=== PATIENT | female | born 1985 | race Caucasian/White ===

== ENCOUNTER 2024-03-29 15:11 | Observation (INO) | payer BC, SELFPAY ==
[2024-03-29] VITALS (48 sets, daily range): BP systolic 100–171; BP diastolic 60–94; PULSE 74–113; RESP 14–33; TEMP 37.4–37.8; O2SAT 87–100
--- NOTE | 2024-03-29 15:15 | DI.US_ITS ---
Exam(s) US OB 1ST TRIMESTER EXAM: US OB 1ST TRIMESTER CLINICAL HISTORY: 6w gest, miso on 03/18, now pelvic pain fever. TECHNIQUE: First trimester obstetrical ultrasound was performed. COMPARISON: No exams were available for comparison FINDINGS: There is a small amount of echogenic material in the endometrial canal at the level of the uterine fu ndus. There is minimal amount of fluid in the medial canal at the lower uterine segment. There are dilated veins on both sides of the uterus as well as in the region of the cervix. No abnormal adnexal masses. Both ovaries appear unremarkable. There is a small amount of fluid in t he cul-de-sac. No obvious extra ovarian adnexal masses. IMPRESSION:: Given the history here findings most probably consistent with some retained products of conception in the endometrial canal at the level the uterine fundus No abnormal ovarian findings Is a small amount of free fluid in the cul-de-sac. Discussed by phone with ER physician 03/29/2024 4:45 p.m. DATA REPOSITORY:
[2024-03-29 15:52] LABS: Bilirubin Negative (Negative); Blood Small (Negative); Clarity Clear (Clear); Glucose Negative (Negative); Ketones Negative (Negative); Leukocyte Esterase Negative (Negative); Nitrite Negative (Negative); Urobilinogen 0.2 mg/dL (Up to 0.2); pH 5.5 (5-8)
[2024-03-29 16:06] LABS: Bacteria Negative HPF (Negative); C & S Indicated? No; Crystals Negative HPF (Negative); Epithelial Cells Rare HPF (Negative); Mucus Negative (Negative); WBC Negative HPF (0-5)
[2024-03-29 16:19] LABS: Abs Immature Grans 0.07 10^3/uL (0.0-0.06); Absolute Basophil Count 0.04 10^3/uL (0.0-0.2); Absolute Eosinophil Count 0.06 10^3/uL (0.0-0.7); Absolute Lymphocyte Count 0.61 10^3/uL (1.2-3.4); Absolute Monocyte Count 0.81 10^3/uL (0.1-0.8); Absolute Neutrophil Count 13.34 10^3/uL (1.2-6.7); Basophils % 0.3 %; Eosinophils % 0.4 %; HCT 40.3 % (36.0-46.0); HGB 13.3 g/dL (11.2-15.7); Immature Grans % 0.5 %; Lymphocytes % 4.1 %; MCH 30.9 pg (27.0-33.0); MCV 94 fL (80-95); Monocytes % 5.4 %; Neutrophils % 89.3 %; Platelet Count 255 10^3/uL (130-400); RBC 4.31 10^6/uL (3.93-5.22); RDW 12.7 % (11.7-14.6); RDW-SD 43.7 fL; WBC 14.94 10^3/uL (4.4-10.8)
[2024-03-29 16:43] LABS: ALT 19 U/L (14-59); AST 14 U/L (15-37); Albumin 4.2 g/dL (3.4-5.0); Alkaline Phosphatase 52 U/L (46-116); Anion Gap 11.6 mmol/L (3-11); BUN 16 mg/dL (7-18); Bilirubin, Total 0.33 mg/dL (0.2-1.0); CO2 24.4 mmol/L (21.0-32.0); CREATININE 0.8 mg/dL (0.55-1.02); Calcium 9.4 mg/dL (8.5-10.1); Chloride 104 mmol/L (98-107); Estimated GFR 96.06 (mL/min/1.73m2); Glucose 97 mg/dL (74-106); HCG Quant, Pregnancy 159 mIU/mL (1-3); Potassium 3.6 mmol/L (3.5-5.1); Sodium 140 mmol/L (136-145)
[2024-03-29 17:13] LABS: PTT Activated 27.2 sec (20.6-30.2); Prothrombin Time 10.2 sec (9.1-11.1)
--- NOTE | 2024-03-29 17:28 | ED.GENADUL_ITS ---
Discharge Plan Disposition Patient Disposition: Admit to [facility] Condition: Serious Discharge Details Clinical Impression: Endometritis Primary Care Provider: None,None ED Provider: Monica Caldwell Home Meds and New Rx's Prescriptions: New doxycycline hyclate 100 mg capsule 100 mg PO BID Qty: 26 0RF Continued levothyroxine [Synthroid] 125 mcg tablet 125 mcg PO DAILY sertraline 50 mg tablet 50 mg PO DAILY metoprolol succinate 50 mg tablet extended release 24 hr 50 mg PO DAILY Discharge Instructions Additional Instructions: Take methergine 0.2mg every 4 hours for six total doses. You were given one the ED; the other 5 days are being sent home with you. Take them every 4 hours until they are gone. Take doxycycline every 12 hours for the next 14 days. Followup with OB- they will call you to schedule an appointment for Thursday. If you do not hear from them please call the office. Return to the emergency department for new or worsening symptoms including fever that does not respond to medication, if you feel worse, are vomiting, feel like you are going to pass out, or if you have any other concerns. Referrals: [facility] [Provider Group] HPI General Mode of arrival: ambulatory . Date/Time Provider Initiated Documentation: 03/29/24 15:13 . Limitations to Documentation: no limitations . Information obtained by: patient . HPI Narrative: 38yo , recent incomplete miscarriage at 6 weeks gestation treated with misoprostol on 03/18 at presenting for fever and pelvic pain. Bleeding is still present but has slowed down significantly. For the past several days has felt generally unwell, febrile to 102F at home (improved with tylenol and ibuprofen), and has increasing pelvic pain and cramping. No foul smelling discharge. Currently has diffuse myalgias and mild diffuse headache. Otherwise in her usual state of health with no chills, rash, nausea, vomiting, dysuria, hematuria, or other concerns. Related Data Home Medications ?Medication ?Instructions ?Recorded ?Confirmed doxycycline hyclate 100 mg capsule 100 mg PO BID #26 caps 03/29/24 levothyroxine 125 mcg tablet 125 mcg PO DAILY 03/29/24 03/29/24 (Synthroid) metoprolol succinate 50 mg 50 mg PO DAILY 03/29/24 03/29/24 tablet,extended release 24 hr sertraline 50 mg tablet 50 mg PO DAILY 03/29/24 03/29/24 Previous Rx's ?Medication ?Instructions ?Recorded doxycycline hyclate 100 mg capsule 100 mg PO BID #26 caps 03/29/24 Allergies Allergy/AdvReac Type Severity Reaction Status Date / Time amoxicillin (From Augmentin) Allergy Intermediate Skin Rash Verified 03/29/24 15:21 clavulanic acid (From Allergy Intermediate Skin Rash Verified 03/29/24 15:21 Augmentin) General Stated Complaint: [employer]: 3 Review of Systems Narrative: see HPI Exam Narrative Exam Narrative: General: Alert, in no acute distress. Head: Normocephalic, atraumatic Neck: Trachea midline, ?Neck supple. ENT: ?MMM.? No oropharygeal lesions or exudate. Cardiac: ?Tachycardiac, regular, no murmurs appreciated Resp: No respiratory distress. CTAB. Abd: ?Soft, non-distended, nontender : ?No suprapubic tenderness. Pelvic: Normal external genitalia with no lesions.? No active bleeding. No CMT. Uterus significantly TTP, adenxa nontender with no masses palpated. Extremities: ?No deformities.? No peripheral edema. Neurologic: GCS 15. ? Moves all extremities freely against gravity Course Vital Signs Vital signs: Vital Signs Temperature 37.7 C H 03/29/24 15:16 Pulse 105 H 03/29/24 15:16 Respiratory Rate 18 03/29/24 15:16 Blood Pressure 171/83 H 03/29/24 15:16 Pulse Oximetry 100 03/29/24 15:16 Temperature 37.7 C H 03/29/24 15:16 Temperature Source Oral 03/29/24 15:16 Pulse 105 H 03/29/24 15:16 Respiratory Rate 18 03/29/24 15:16 Blood Pressure 171/83 H 03/29/24 15:16 Blood Pressure Position Supine 03/29/24 15:16 Pulse Oximetry 100 03/29/24 15:16 Oxygen Delivery Method Room Air 03/29/24 15:16 Oxygen Flow Rate 0 03/29/24 15:16 Pain Level 4 03/29/24 15:43 Lab/Test Results Lab/Test Results: 03/29/24 17:10 Vaginal Vaginitis Screen - Pending 03/29/24 16:50 Blood Blood Culture - Pending 03/29/24 16:10 Blood Blood Culture - Pending Laboratory Tests Range/Units 03/29/24 03/29/24 03/29/24 15:30 16:10 16:50 WBC (4.4-10.8) 10^3/uL 14.94 H RBC (3.93-5.22) 10^6/uL 4.31 Hgb (11.2-15.7) g/dL 13.3 Hct (36.0-46.0) % 40.3 MCV (80-95) fL 94 MCH (27.0-33.0) pg 30.9 MCHC (32.0-36.0) % 33.0 RDW (11.7-14.6) % 12.7 Plt Count (130-400) 10^3/uL 255 MPV (8.0-11.0) fL 9.0 Immature Gran % % 0.5 Neutrophils % % 89.3 Lymphocytes % % 4.1 Monocytes % % 5.4 Eosinophils % % 0.4 Basophils % % 0.3 Nucleated RBC % (0.0-0.3) % 0.0 Absolute Neutrophils (1.2-6.7) 10^3/uL 13.34 H Absolute Lymphocytes (1.2-3.4) 10^3/uL 0.61 L Absolute Monocytes (0.1-0.8) 10^3/uL 0.81 H Absolute Eosinophils (0.0-0.7) 10^3/uL 0.06 Absolute Basophils (0.0-0.2) 10^3/uL 0.04 PT (9.1-11.1) sec 10.2 INR (0.9-1.1) 1.0 APTT (20.6-30.2) sec 27.2 Sodium (136-145) mmol/L 140 Potassium (3.5-5.1) mmol/L 3.6 Chloride (98-107) mmol/L 104 Carbon Dioxide (21.0-32.0) mmol/L 24.4 Anion Gap (3-11) mmol/L 11.6 H BUN (7-18) mg/dL 16 Creatinine (0.55-1.02) mg/dL 0.8 Est GFR (CKD-EPI 2020) (mL/min/1.73m2) 96.06 Glucose (74-106) mg/dL 97 Calcium (8.5-10.1) mg/dL 9.4 Total Bilirubin (0.2-1.0) mg/dL 0.33 AST (15-37) U/L 14 L ALT (14-59) U/L 19 Alkaline Phosphatase (46-116) U/L 52 Total Protein (6.4-8.2) g/dL 8.0 Albumin (3.4-5.0) g/dL 4.2 Beta HCG, Quant (1-3) mIU/mL 159 H Urine Color (Yellow) Yellow Urine Clarity (Clear) Clear Urine pH (5-8) 5.5 Ur Specific [place] (1.005-1.025) 1.010 Urine Protein (Neg-Trace) mg/dL Negative Urine Ketones (Negative) mg/dL Negative Urine Blood (Negative) Small H Urine Nitrite (Negative) Negative Urine Bilirubin (Negative) Negative Urine Urobilinogen (Up to 0.2) mg/dL 0.2 Ur Leukocyte Esterase (Negative) Negative Urine RBC (0-2) HPF 3-5 H Urine WBC (0-5) HPF Negative Ur Epithelial Cells (Negative) HPF Rare Urine Crystals (Negative) HPF Negative Urine Bacteria (Negative) HPF Negative Urine Mucus (Negative) Negative Ur Culture Indicated? No Urine Glucose (Negative) mg/dL Negative ABO/Rh A Positive Antibody Screen NEGATIVE Medical Decision Making 38yo , recent incomplete miscarriage at 6 weeks gestation treated with misoprostol on 03/18 at presenting for fever and pelvic pain. Hypertensive and tachycardiac on arrival, afebrile. Non-toxic on exam, minimal vaginal bleeding, does have marked uterine tenderness on pelvic exam with no CMT. Concerning for retained products of conception/infection/endometritis. Will give tylenol and toradol for pain. Labs reviewed as below, CBC with leukocytosis to 14.9 and no anemia, CMP with no actionable abnormalities, lactate normal, serum bHCG 159, UA not infected. US independently reviewed, agree with radiology read below with possible retained products. On reassessment remains non-toxic, vital signs improved with HR in 70's and BP 130's/60's. With elevated WBC and initial tachycardia does meet SIRS criteria however is extremely well appearing with normalized vital signs would not treat as septic with aggressive fluid resus or broad spectrum antibiotics. Blood cultures were sent and are pending. Discussed with OB Dr. Monroy who came and evaluated patient. Plan for dose of IV ceftriaxone and discharge home on PO doxycyline and methergine with close outpatient followup. On reassessment patient reports feeling worse, worsening general body aches, worsening headache. HR return to 90's-100's. Does appear less well than on arrival. Given this, I ordered an IVB and discussed with Dr. Cardenas again who agrees to accepted patient for observation and inpatient antibiotic treatment. Awaiting admission orders and transfer to the floor. Imaging Data Radiologic Study: Imaging: X-Ray Radiologist's impression: IMPRESSION:: Given the history here findings most probably consistent with some retained products of conception in the endometrial canal at the level the uterine fundus Lab Data Lab results reviewed: Yes I reviewed the patient's lab results. Labs: 03/29/24 17:10 Vaginal Vaginitis Screen - Final 03/29/24 16:50 Blood Blood Culture - Pending 03/29/24 16:10 Blood Blood Culture - Pending Laboratory Tests Range/Units 03/29/24 03/29/24 03/29/24 15:30 16:10 16:50 WBC (4.4-10.8) 10^3/uL 14.94 H RBC (3.93-5.22) 10^6/uL 4.31 Hgb (11.2-15.7) g/dL 13.3 Hct (36.0-46.0) % 40.3 MCV (80-95) fL 94 MCH (27.0-33.0) pg 30.9 MCHC (32.0-36.0) % 33.0 RDW (11.7-14.6) % 12.7 Plt Count (130-400) 10^3/uL 255 MPV (8.0-11.0) fL 9.0 Immature Gran % % 0.5 Neutrophils % % 89.3 Lymphocytes % % 4.1 Monocytes % % 5.4 Eosinophils % % 0.4 Basophils % % 0.3 Nucleated RBC % (0.0-0.3) % 0.0 Absolute Neutrophils (1.2-6.7) 10^3/uL 13.34 H Absolute Lymphocytes (1.2-3.4) 10^3/uL 0.61 L Absolute Monocytes (0.1-0.8) 10^3/uL 0.81 H Absolute Eosinophils (0.0-0.7) 10^3/uL 0.06 Absolute Basophils (0.0-0.2) 10^3/uL 0.04 PT (9.1-11.1) sec 10.2 INR (0.9-1.1) 1.0 APTT (20.6-30.2) sec 27.2 VBG Lactate (<or=2.0) mmol/L Sodium (136-145) mmol/L 140 Potassium (3.5-5.1) mmol/L 3.6 Chloride (98-107) mmol/L 104 Carbon Dioxide (21.0-32.0) mmol/L 24.4 Anion Gap (3-11) mmol/L 11.6 H BUN (7-18) mg/dL 16 Creatinine (0.55-1.02) mg/dL 0.8 Est GFR (CKD-EPI 2020) (mL/min/1.73m2) 96.06 Glucose (74-106) mg/dL 97 Calcium (8.5-10.1) mg/dL 9.4 Total Bilirubin (0.2-1.0) mg/dL 0.33 AST (15-37) U/L 14 L ALT (14-59) U/L 19 Alkaline Phosphatase (46-116) U/L 52 Total Protein (6.4-8.2) g/dL 8.0 Albumin (3.4-5.0) g/dL 4.2 Beta HCG, Quant (1-3) mIU/mL 159 H Urine Color (Yellow) Yellow Urine Clarity (Clear) Clear Urine pH (5-8) 5.5 Ur Specific [place] (1.005-1.025) 1.010 Urine Protein (Neg-Trace) mg/dL Negative Urine Ketones (Negative) mg/dL Negative Urine Blood (Negative) Small H Urine Nitrite (Negative) Negative Urine Bilirubin (Negative) Negative Urine Urobilinogen (Up to 0.2) mg/dL 0.2 Ur Leukocyte Esterase (Negative) Negative Urine RBC (0-2) HPF 3-5 H Urine WBC (0-5) HPF Negative Ur Epithelial Cells (Negative) HPF Rare Urine Crystals (Negative) HPF Negative Urine Bacteria (Negative) HPF Negative Urine Mucus (Negative) Negative Ur Culture Indicated? No Urine Glucose (Negative) mg/dL Negative ABO/Rh A Positive Antibody Screen NEGATIVE Range/Units 03/29/24 20:45 WBC (4.4-10.8) 10^3/uL RBC (3.93-5.22) 10^6/uL Hgb (11.2-15.7) g/dL Hct (36.0-46.0) % MCV (80-95) fL MCH (27.0-33.0) pg MCHC (32.0-36.0) % RDW (11.7-14.6) % Plt Count (130-400) 10^3/uL MPV (8.0-11.0) fL Immature Gran % % Neutrophils % % Lymphocytes % % Monocytes % % Eosinophils % % Basophils % % Nucleated RBC % (0.0-0.3) % Absolute Neutrophils (1.2-6.7) 10^3/uL Absolute Lymphocytes (1.2-3.4) 10^3/uL Absolute Monocytes (0.1-0.8) 10^3/uL Absolute Eosinophils (0.0-0.7) 10^3/uL Absolute Basophils (0.0-0.2) 10^3/uL PT (9.1-11.1) sec INR (0.9-1.1) APTT (20.6-30.2) sec VBG Lactate (<or=2.0) mmol/L 1.2 Sodium (136-145) mmol/L Potassium (3.5-5.1) mmol/L Chloride (98-107) mmol/L Carbon Dioxide (21.0-32.0) mmol/L Anion Gap (3-11) mmol/L BUN (7-18) mg/dL Creatinine (0.55-1.02) mg/dL Est GFR (CKD-EPI 2020) (mL/min/1.73m2) Glucose (74-106) mg/dL Calcium (8.5-10.1) mg/dL Total Bilirubin (0.2-1.0) mg/dL AST (15-37) U/L ALT (14-59) U/L Alkaline Phosphatase (46-116) U/L Total Protein (6.4-8.2) g/dL Albumin (3.4-5.0) g/dL Beta HCG, Quant (1-3) mIU/mL Urine Color (Yellow) Urine Clarity (Clear) Urine pH (5-8) Ur Specific [place] (1.005-1.025) Urine Protein (Neg-Trace) mg/dL Urine Ketones (Negative) mg/dL Urine Blood (Negative) Urine Nitrite (Negative) Urine Bilirubin (Negative) Urine Urobilinogen (Up to 0.2) mg/dL Ur Leukocyte Esterase (Negative) Urine RBC (0-2) HPF Urine WBC (0-5) HPF Ur Epithelial Cells (Negative) HPF Urine Crystals (Negative) HPF Urine Bacteria (Negative) HPF Urine Mucus (Negative) Ur Culture Indicated? Urine Glucose (Negative) mg/dL ABO/Rh Antibody Screen Quality:SDOH Health Related Social Needs: No Data to Display PFSH All Active Problems (Updated 03/29/24 @ 19:32 by Monica Caldwell MD) Endometritis (Acute) Endometritis (Acute) PVC (premature ventricular contraction) (Acute) Anxiety (Chronic) Hypothyroid (Chronic) Social History Smoking/Tobacco Use Status: Never Smoking risk assessment performed?: Yes Alcohol Intake: never Substance use type: does not use Housing: house Do you feel safe at home: Yes Do you feel safe in your relationship?: Yes History History 3 Para 3 Hx # Term Pregnancies 3 Multiple births Hx # Pregnancies Ectopic pregnancies AB induced Hx Number of Living Children 3 AB spontaneous 2
[2024-03-29] MEDS: Ketorolac 15 MG/ML VIAL IVP (17:46)
[2024-03-29] MEDS: Acetaminophen 500 MG TAB 1000 MG PO ×2 (17:50→22:21)
--- NOTE | 2024-03-29 18:32 | OBCE_ITS ---
Date of service: 03/29/24 Time of Service: 18:32 Assessment and Plan Assessment and plan (1) Endometritis: Status: Acute Assessment and plan: Suspect endometritis with possible small amount of retained POC. However, given her stable presentation and relatively benign appearing endometrium I think it is reasonable to treat the endometritis with Ceftriaxone and doxy and give a course of methergine to assist with expulsion of anything remaining in the uterus. I will give her a f/u call am and she will be contacted to schedule a f/u visit with me on Thursday. 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 She will be sent home with her first doses of doxy. History of Present Illness History of Present Illness Chief Complaint: post-miscarriage fever Narrative: Pt had a MAB, about 5-6wks, treated with misoprostol at [facility] on Mar 18. She had about 4 days of heavier bleeding, similar to her prior miscarriage. Then the bleeding subsided and was minimal. About 3 days ago she began to develop pelvic pain and then a fever up to 102. She is still only having minimal bleeding, needing 1 pad/day. She came to the ED for evaluation. Afebrile here. Review of Systems Genitourinary Genitourinary: Reports system reviewed and no additional complaints, except as documented PFSH All Active Problems (Updated 03/29/24 @ 18:46 by Tasneem Monroy MD) Endometritis (Acute) PVC (premature ventricular contraction) (Acute) Anxiety (Chronic) Hypothyroid (Chronic) Social History Smoking/Tobacco Use Status: Never Smoking risk assessment performed?: Yes Alcohol Intake: never Substance use type: does not use Housing: house Do you feel safe at home: Yes Do you feel safe in your relationship?: Yes History History 2 3 Para 3 Hx # Term Pregnancies 3 Multiple births Hx # Pregnancies Ectopic pregnancies AB induced Hx Number of Living Children 3 AB spontaneous 2 Exam Const General: cooperative, healthy appearing and no acute distress HENMT Head: normocephalic and atraumatic Ears: hearing grossly normal bilaterally Resp Effort & Inspection: normal respiratory effort and able to speak in complete sentences GI Other: Tender to palpation in the suprapubic region. Pelvic exam not repeated as already done by ED Doc - minimal blood noted. Neuro General: patient alert and patient awake Psych Appearance: grossly normal Mental Status: mental status grossly normal Speech and Movement: speech and movement normal Affect: normal affect Attitude: cooperative Thought Process: normal Thought Content: normal Results Last Vital Signs Temp 100.0 F H 03/29/24 17:44 Pulse 101 H 03/29/24 18:15 Resp 22 03/29/24 18:20 BP 122/63 03/29/24 18:15 Pulse Ox 98 03/29/24 18:20 Labs 03/29/24 16:10 03/29/24 16:10 Labs: Laboratory Results - last 24 hr 03/29/24 03/29/24 03/29/24 15:30 16:10 16:50 WBC 14.94 H RBC 4.31 Hgb 13.3 Hct 40.3 MCV 94 MCH 30.9 MCHC 33.0 RDW 12.7 Plt Count 255 MPV 9.0 Immature Gran % 0.5 Neutrophils % 89.3 Lymphocytes % 4.1 Monocytes % 5.4 Eosinophils % 0.4 Basophils % 0.3 Nucleated RBC % 0.0 Absolute Neutrophils 13.34 H Absolute Lymphocytes 0.61 L Absolute Monocytes 0.81 H Absolute Eosinophils 0.06 Absolute Basophils 0.04 PT 10.2 INR 1.0 APTT 27.2 Sodium 140 Potassium 3.6 Chloride 104 Carbon Dioxide 24.4 Anion Gap 11.6 H BUN 16 Creatinine 0.8 Est GFR (CKD-EPI 2020) 96.06 Glucose 97 Calcium 9.4 Total Bilirubin 0.33 AST 14 L ALT 19 Alkaline Phosphatase 52 Total Protein 8.0 Albumin 4.2 Beta HCG, Quant 159 H Urine Color Yellow Urine Clarity Clear Urine pH 5.5 Ur Specific [place] 1.010 Urine Protein Negative Urine Ketones Negative Urine Blood Small H Urine Nitrite Negative Urine Bilirubin Negative Urine Urobilinogen 0.2 Ur Leukocyte Esterase Negative Urine RBC 3-5 H Urine WBC Negative Ur Epithelial Cells Rare Urine Crystals Negative Urine Bacteria Negative Urine Mucus Negative Ur Culture Indicated? No Urine Glucose Negative ABO/Rh A Positive Antibody Screen NEGATIVE Imaging US - pelvic: report reviewed and image reviewed Imaging Studies: Small amount of echogenic material in the uterine fundus and some fluid in the canal - does not appear to measure >1.5cm.
[2024-03-29] MEDS: cefTRIAXone 2 GM/50 ML BAG IVPB (19:24)
[2024-03-29] MEDS: Methylergonovine 0.2 MG TAB PO ×2 (19:24→23:28)
[2024-03-29] MEDS: Doxycycline Hyclate 100 MG CAP 200 MG PO (19:24)
[2024-03-29] MEDS: Normal Saline 1,000 ML 1000 ML IV ×2 (20:09→23:28)
[2024-03-29 21:16] LABS: Lactate 1.2 mmol/L (<or=2.0)
[2024-03-29] MEDS: Ibuprofen 600 MG TAB PO (22:22)
--- NOTE | 2024-03-29 22:54 | PGE_ITS ---
Date of Service Date of service: 03/29/24 Time of Service: 22:56 Assessment and Plan Assessment and plan (1) Endometritis: Status: Acute Assessment and plan: Will admit overnight for her abx. She already received ceftriazone and 1 dose of doxycycline. She will continue the doxy BID and will start metronidazole BID. She will continue methergine q4hrs for low possibility of retained POC and will remain NPO overnight in case a decision were made to take her to the OR for uterine evacuation in the am. Will repeat CBC in the am and re-evaluate her status. Subjective Subjective Interval history since last seen: Dr. Caldwell called to say that they pt is feeling continued pain, continues to be mildly tachycardic and seems anxious about going home, prefers admission for observation. There was also some difficulty with obtaining medication to send her home with for her first doses until the pharmacy was opened. Objective Last Vital Signs Temp 99.3 F 03/29/24 22:01 Pulse 97 H 03/29/24 22:01 Resp 22 03/29/24 22:20 BP 132/73 03/29/24 22:01 Pulse Ox 100 03/29/24 22:20 Laboratory Results - last 24 hr 03/29/24 03/29/24 03/29/24 15:30 16:10 16:50 WBC 14.94 H RBC 4.31 Hgb 13.3 Hct 40.3 MCV 94 MCH 30.9 MCHC 33.0 RDW 12.7 Plt Count 255 MPV 9.0 Immature Gran % 0.5 Neutrophils % 89.3 Lymphocytes % 4.1 Monocytes % 5.4 Eosinophils % 0.4 Basophils % 0.3 Nucleated RBC % 0.0 Absolute Neutrophils 13.34 H Absolute Lymphocytes 0.61 L Absolute Monocytes 0.81 H Absolute Eosinophils 0.06 Absolute Basophils 0.04 PT 10.2 INR 1.0 APTT 27.2 VBG Lactate Sodium 140 Potassium 3.6 Chloride 104 Carbon Dioxide 24.4 Anion Gap 11.6 H BUN 16 Creatinine 0.8 Est GFR (CKD-EPI 2020) 96.06 Glucose 97 Calcium 9.4 Total Bilirubin 0.33 AST 14 L ALT 19 Alkaline Phosphatase 52 Total Protein 8.0 Albumin 4.2 Beta HCG, Quant 159 H Urine Color Yellow Urine Clarity Clear Urine pH 5.5 Ur Specific [place] 1.010 Urine Protein Negative Urine Ketones Negative Urine Blood Small H Urine Nitrite Negative Urine Bilirubin Negative Urine Urobilinogen 0.2 Ur Leukocyte Esterase Negative Urine RBC 3-5 H Urine WBC Negative Ur Epithelial Cells Rare Urine Crystals Negative Urine Bacteria Negative Urine Mucus Negative Ur Culture Indicated? No Urine Glucose Negative ABO/Rh A Positive Antibody Screen NEGATIVE 03/29/24 20:45 WBC RBC Hgb Hct MCV MCH MCHC RDW Plt Count MPV Immature Gran % Neutrophils % Lymphocytes % Monocytes % Eosinophils % Basophils % Nucleated RBC % Absolute Neutrophils Absolute Lymphocytes Absolute Monocytes Absolute Eosinophils Absolute Basophils PT INR APTT VBG Lactate 1.2 Sodium Potassium Chloride Carbon Dioxide Anion Gap BUN Creatinine Est GFR (CKD-EPI 2020) Glucose Calcium Total Bilirubin AST ALT Alkaline Phosphatase Total Protein Albumin Beta HCG, Quant Urine Color Urine Clarity Urine pH Ur Specific [place] Urine Protein Urine Ketones Urine Blood Urine Nitrite Urine Bilirubin Urine Urobilinogen Ur Leukocyte Esterase Urine RBC Urine WBC Ur Epithelial Cells Urine Crystals Urine Bacteria Urine Mucus Ur Culture Indicated? Urine Glucose ABO/Rh Antibody Screen Objective Narrative Objective Narrative: Pt remains stable. HR around 100. BP normal range. Afebrile though she received tylenol and toradol. WBC elevated. Lactic acid normal. Blood cultures pending. UA negative. Time Spent with Patient Time Spent with Patient: 25-34 minutes Time was spent: preparing to see the patient(eg.review tests), obtaining and/or reviewing separately otained hiistory, ordering medications,tests, procedures, referring, communicating with other health md do resident urgent care, indepentently interpreting results and counseling the patient
--- NOTE | 2024-03-29 23:14 | NUR.NOTE ---
Nursing Note: Clarified with Dr. Coe methergine order for admission. Pt is to get second dose at 2330 (4hs post initial dose) then hold over night while sleeping and will resume dosing in the morning. Dr. Coe stated order will be modified in the am.
[2024-03-30] MEDS: Normal Saline 1,000 ML 150 ML IV ×2 (00:30→07:09)
[2024-03-30 02:50] VITALS: BP 110/64; PULSE 78; RESP 15; TEMP 36.4; O2SAT 98
[2024-03-30] MEDS: oxyCODONE 5 MG TAB PO (03:20)
[2024-03-30] MEDS: Ibuprofen 600 MG TAB PO (05:45)
--- NOTE | 2024-03-30 05:53 | W.PC.ACHO ---
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 Pelvic cramping, was better, now worse. Vaginal bleeding continued. General malaise. Fever 102 at home. [facility] Most Recent Vital Signs Temperature 36.4 C L 03/30/24 02:50 Temperature Source Tympanic 03/30/24 02:50 Pulse 78 03/30/24 02:50 Pulse Rhythm Regular 03/30/24 02:50 Pulse 99 H 03/29/24 23:20 Respiratory Rate 15 03/30/24 02:50 Respiratory Effort Normal, Non-Labored 03/30/24 02:50 Respiratory Depth Normal 03/30/24 02:50 Respiratory Pattern Normal 03/30/24 02:50 Blood Pressure 110/64 03/30/24 02:50 Blood Pressure Mean 100 03/29/24 23:00 Blood Pressure Position Supine 03/29/24 15:16 Pulse Oximetry 98 03/30/24 02:50 Oxygen Delivery Method Room Air 03/30/24 02:50 Oxygen Flow Rate 0 03/30/24 02:50 Pain Level 4 03/30/24 03:20 Allergies amoxicillin (From Augmentin) Allergy (Intermediate, Verified 03/29/24 15:21) Skin Rash clavulanic acid (From Augmentin) Allergy (Intermediate, Verified 03/29/24 15:21) Skin Rash Active Medications Generic Name Dose Route Start Last Admin Trade Name Freq PRN Reason Stop Dose Admin Sodium Chloride 1,000 mls @ 150 mls/hr 03/29/24 22:45 03/30/24 00:30 Saline 1000ml Bag IV 150 mls/hr INFUSION POLO Administration Methylergonovine Maleate 0.2 mg 03/29/24 22:42 03/29/24 23:28 Methylergonovine 0.2 Mg Tab PO 0.2 mg Q4H PRN Administration Oxycodone HCl 5 mg 03/30/24 01:45 03/30/24 03:20 Oxycodone 5 Mg Tab PO 5 mg Q6H PRN PRN Administration IV IV Catheter Type [Right Peripheral IV Antecubital] IV Catheter Gauge [Right 18 Antecubital] Diet Orders Category Date Time Status Nothing Per Oral [DIET] Nutrition 03/30/24 Breakfast Active Diagnostics 03/30/24 03/29/24 03/29/24 Range/Units 05:35 20:45 16:50 WBC Pending (4.4-10.8) 10^3/uL RBC Pending (3.93-5.22) 10^6/uL Hgb Pending (11.2-15.7) g/dL Hct Pending (36.0-46.0) % MCV Pending (80-95) fL MCH Pending (27.0-33.0) pg MCHC Pending (32.0-36.0) % RDW Pending (11.7-14.6) % Plt Count Pending (130-400) 10^3/uL MPV Pending (8.0-11.0) fL Immature Gran % Pending % Neutrophils % Pending % Lymphocytes % Pending % Monocytes % Pending % Eosinophils % Pending % Basophils % Pending % Nucleated RBC % (0.0-0.3) % Absolute Neutrophils Pending (1.2-6.7) 10^3/uL Absolute Lymphocytes Pending (1.2-3.4) 10^3/uL Absolute Monocytes Pending (0.1-0.8) 10^3/uL Absolute Eosinophils Pending (0.0-0.7) 10^3/uL Absolute Basophils Pending (0.0-0.2) 10^3/uL PT 10.2 (9.1-11.1) sec INR 1.0 (0.9-1.1) APTT 27.2 (20.6-30.2) sec VBG Lactate 1.2 (<or=2.0) mmol/L Sodium (136-145) mmol/L Potassium (3.5-5.1) mmol/L Chloride (98-107) mmol/L Carbon Dioxide (21.0-32.0) mmol/L Anion Gap (3-11) mmol/L BUN (7-18) mg/dL Creatinine (0.55-1.02) mg/dL Est GFR (CKD-EPI 2020) (mL/min/1.73m2) Glucose (74-106) mg/dL Calcium (8.5-10.1) mg/dL Total Bilirubin (0.2-1.0) mg/dL AST (15-37) U/L ALT (14-59) U/L Alkaline Phosphatase (46-116) U/L Total Protein (6.4-8.2) g/dL Albumin (3.4-5.0) g/dL Beta HCG, Quant (1-3) mIU/mL Urine Color (Yellow) Urine Clarity (Clear) Urine pH (5-8) Ur Specific [place] (1.005-1.025) Urine Protein (Neg-Trace) mg/dL Urine Ketones (Negative) mg/dL Urine Blood (Negative) Urine Nitrite (Negative) Urine Bilirubin (Negative) Urine Urobilinogen (Up to 0.2) mg/dL Ur Leukocyte Esterase (Negative) Urine RBC (0-2) HPF Urine WBC (0-5) HPF Ur Epithelial Cells (Negative) HPF Urine Crystals (Negative) HPF Urine Bacteria (Negative) HPF Urine Mucus (Negative) Ur Culture Indicated? Urine Glucose (Negative) mg/dL ABO/Rh Antibody Screen 03/29/24 03/29/24 Range/Units 16:10 15:30 WBC 14.94 H (4.4-10.8) 10^3/uL RBC 4.31 (3.93-5.22) 10^6/uL Hgb 13.3 (11.2-15.7) g/dL Hct 40.3 (36.0-46.0) % MCV 94 (80-95) fL MCH 30.9 (27.0-33.0) pg MCHC 33.0 (32.0-36.0) % RDW 12.7 (11.7-14.6) % Plt Count 255 (130-400) 10^3/uL MPV 9.0 (8.0-11.0) fL Immature Gran % 0.5 % Neutrophils % 89.3 % Lymphocytes % 4.1 % Monocytes % 5.4 % Eosinophils % 0.4 % Basophils % 0.3 % Nucleated RBC % 0.0 (0.0-0.3) % Absolute Neutrophils 13.34 H (1.2-6.7) 10^3/uL Absolute Lymphocytes 0.61 L (1.2-3.4) 10^3/uL Absolute Monocytes 0.81 H (0.1-0.8) 10^3/uL Absolute Eosinophils 0.06 (0.0-0.7) 10^3/uL Absolute Basophils 0.04 (0.0-0.2) 10^3/uL PT (9.1-11.1) sec INR (0.9-1.1) APTT (20.6-30.2) sec VBG Lactate (<or=2.0) mmol/L Sodium 140 (136-145) mmol/L Potassium 3.6 (3.5-5.1) mmol/L Chloride 104 (98-107) mmol/L Carbon Dioxide 24.4 (21.0-32.0) mmol/L Anion Gap 11.6 H (3-11) mmol/L BUN 16 (7-18) mg/dL Creatinine 0.8 (0.55-1.02) mg/dL Est GFR (CKD-EPI 2020) 96.06 (mL/min/1.73m2) Glucose 97 (74-106) mg/dL Calcium 9.4 (8.5-10.1) mg/dL Total Bilirubin 0.33 (0.2-1.0) mg/dL AST 14 L (15-37) U/L ALT 19 (14-59) U/L Alkaline Phosphatase 52 (46-116) U/L Total Protein 8.0 (6.4-8.2) g/dL Albumin 4.2 (3.4-5.0) g/dL Beta HCG, Quant 159 H (1-3) mIU/mL Urine Color Yellow (Yellow) Urine Clarity Clear (Clear) Urine pH 5.5 (5-8) Ur Specific [place] 1.010 (1.005-1.025) Urine Protein Negative (Neg-Trace) mg/dL Urine Ketones Negative (Negative) mg/dL Urine Blood Small H (Negative) Urine Nitrite Negative (Negative) Urine Bilirubin Negative (Negative) Urine Urobilinogen 0.2 (Up to 0.2) mg/dL Ur Leukocyte Esterase Negative (Negative) Urine RBC 3-5 H (0-2) HPF Urine WBC Negative (0-5) HPF Ur Epithelial Cells Rare (Negative) HPF Urine Crystals Negative (Negative) HPF Urine Bacteria Negative (Negative) HPF Urine Mucus Negative (Negative) Ur Culture Indicated? No Urine Glucose Negative (Negative) mg/dL ABO/Rh A Positive Antibody Screen NEGATIVE 03/29/24 17:10 Vaginitis Screen - Final Vaginal 03/29/24 16:50 Blood Culture - Pending Blood 03/29/24 16:10 Blood Culture - Pending Blood Intake and Output - 24 Hour Total 03/29/24 15:11 thru 03/30/24 02:50 Intake Total 2049 Balance 2049 Weight 92.533 kg Intake: IV 2049 Other: Comment patient voided in toilet Falls Risk Assessment History of Falls No History 03/30/24 02:50 Contributing Factors No Factors 03/30/24 02:50 Ambulatory Aids Independent 03/30/24 02:50 Tubes/Lines W/no contributing factors 03/30/24 02:50 Gait Evaluation No gait disturbance 03/30/24 02:50 Cognition No cognitive impairment 03/30/24 02:50 Fall Total Score 10 03/30/24 02:50 Level of Risk Standard/Low Risk 03/30/24 02:50 Problems Endometritis (Acute) Notes 03/29/24 23:14 Nursing Notes by Reed Win Nursing Note: Clarified with Dr. Coe methergine order for admission. Pt is to get second dose at 2330 (4hs post initial dose) then hold over night while sleeping and will resume dosing in the morning. Dr. Coe stated order will be modified in the am. Initialized on 03/29/24 23:14 - END OF NOTE v v v v v v v v v Sending and/or Receiving Nurses: Please use comment section below to note any information pertinent to the patient hand-off not included above. Information / Comments: incomplete miscarriage on 03/14/24 @ 6 weeks [facility] moderate bleeding and cramping followed. 03/29 had a temp of 102, increased abdominal pain and cramping in ED 120bpm, t 99.9 given tylenol and ibuprofen around 2225 got doxycycline, ceftriaxon methergen 2bd dose around 2330- hold rest of doses until morning for provider to edit diffusics RAC Ultra sound showed some retention currently NPO incase of need for D&C wbc 14.9, lactate 1.2 VS: bp 120/94 hr 101 98% ra Report received from: MAYDA Mcbride @[id number]
[2024-03-30 07:12] LABS: Abs Immature Grans 0.09 10^3/uL (0.0-0.06); Absolute Eosinophil Count 0.04 10^3/uL (0.0-0.7); Absolute Lymphocyte Count 0.75 10^3/uL (1.2-3.4); Absolute Neutrophil Count 12.38 10^3/uL (1.2-6.7); Basophils % 0.3 %; Eosinophils % 0.3 %; HCT 36.2 % (36.0-46.0); Immature Grans % 0.6 %; Lymphocytes % 5.1 %; MCH 30.8 pg (27.0-33.0); MCHC 33.1 % (32.0-36.0); MCV 93 fL (80-95); MPV 8.9 fL (8.0-11.0); Monocytes % 9.8 %; Neutrophils % 83.9 %; Platelet Count 216 10^3/uL (130-400); RBC 3.89 10^6/uL (3.93-5.22); RDW 12.7 % (11.7-14.6); RDW-SD 43.6 fL; WBC 14.75 10^3/uL (4.4-10.8)
[2024-03-30 07:14] LABS: Absolute Basophil Count 0.04 10^3/uL (0.0-0.2); Absolute Monocyte Count 1.45 10^3/uL (0.1-0.8)
[2024-03-30 07:55] VITALS: BP 128/70; PULSE 77; RESP 16; TEMP 36.9; O2SAT 94
[2024-03-30] MEDS: metroNIDAZOLE 500 MG TAB PO (08:17)
[2024-03-30] MEDS: Doxycycline Hyclate 100 MG CAP PO (08:17)
--- NOTE | 2024-03-30 08:32 | PDOC.CMIN ---
Date of service: 03/30/24 Time of Service: 08:32 Care Management Initial Assmt Initial Assessment Reason for Hospitalization: Endometriosis Advance Directives Advance Directives: Do you have an Advance Directive: AD On File at [facility]: N 03/29/24 16:46 Date Asked 03/29/24 03/29/24 16:46 AD Date Reviewed COLST On File at [facility] COLST Date Scanned Code Status Resuscitation Status Full Code Care Team Visit Care Team Role Provider Type None None Primary Care Provider NON-[facility] STAFF PHYSICIAN Monica Caldwell MD Emergency Provider [facility] STAFF PHYSICIAN Tasneem Monroy MD Admit Provider [facility] STAFF PHYSICIAN Attending Provider Social Determinants of Health Screening Will the Patient Participate in the Screening?: Declined to provide PFSH All Active Problems (Updated 03/29/24 @ 19:32 by Monica Caldwell MD) Endometritis (Acute) Endometritis (Acute) PVC (premature ventricular contraction) (Acute) Anxiety (Chronic) Hypothyroid (Chronic) Social History Smoking/Tobacco Use Status: Never Smoking risk assessment performed?: Yes Alcohol Intake: never Substance use type: does not use Housing: house Do you feel safe at home: Yes Do you feel safe in your relationship?: Yes History History 3 Para 3 Hx # Term Pregnancies 3 Multiple births Hx # Pregnancies Ectopic pregnancies AB induced Hx Number of Living Children 3 AB spontaneous 2
[2024-03-30] MEDS: Methylergonovine 0.2 MG TAB PO (08:52)
--- NOTE | 2024-03-30 10:24 | W.PM.PROGNOT ---
Date of Service Date of service: 03/30/24 Time of Service: 10:24 Assessment and Plan Assessment and plan (1) Endometritis: Status: Acute Assessment and plan: Pt is feeling better and clinically improving. We discussed that since she is improving I think the risks of surgery probably outweight the potential benefits at this point in time. However, she was given the option to consider that if she strongly preferred it. Since she is doing better she opts to not do surgery and prefers to go home to rest. She was also given the option of further observation here. She will be discharged with doxy and metronidazole and was given 3 more doses of methergine. She was also given zofran for nausea and recommended to not take her meds on an empty stomach. I will call her tomorrow to f/u and schedule an in person visit on Thursday. Subjective Subjective Interval history since last seen: Pt is feeling a bit better this am. Her pain has improved. She took 1 oxycodone at 3am and that helped some but the ibuprofen was more helpful for the cramping. Very minimal bleeding. Had some nausea and vomiting this am after taking her abx on an empty stomach. Exam Const General: cooperative, healthy appearing and no acute distress [facility] Head: normocephalic and atraumatic Ears: hearing grossly normal bilaterally Resp Effort & Inspection: normal respiratory effort and able to speak in complete sentences GI Other: Mild suprapubic tenderness. Neuro General: patient alert and patient awake Psych Appearance: grossly normal Mental Status: mental status grossly normal Speech and Movement: speech and movement normal Affect: normal affect Attitude: cooperative Thought Process: normal Thought Content: normal Objective Last Vital Signs Temp 98.4 F 03/30/24 07:55 Pulse 77 03/30/24 07:55 Resp 16 03/30/24 07:55 BP 128/70 03/30/24 07:55 Pulse Ox 94 03/30/24 07:55 Laboratory Results - last 24 hr 03/29/24 03/29/24 03/29/24 15:30 16:10 16:50 WBC 14.94 H RBC 4.31 Hgb 13.3 Hct 40.3 MCV 94 MCH 30.9 MCHC 33.0 RDW 12.7 Plt Count 255 MPV 9.0 Immature Gran % 0.5 Neutrophils % 89.3 Band Neutrophils % Lymphocytes % 4.1 Atypical Lymphs % Monocytes % 5.4 Eosinophils % 0.4 Basophils % 0.3 Metamyelocytes % Myelocytes % Promyelocytes % Other Cells % Nucleated RBC % 0.0 Absolute Neutrophils 13.34 H Absolute Lymphocytes 0.61 L Absolute Monocytes 0.81 H Absolute Eosinophils 0.06 Absolute Basophils 0.04 RBC Morphology Polychromasia Hypochromasia Poikilocytosis Basophilic Stippling Anisocytosis Microcytosis Macrocytosis Spherocytes Tear Drop Cells Ovalocytes Stomatocytes [place] Bodies Darrius Cells/Echinocytes Acanthocytes (Spur) Schistocytes PT 10.2 INR 1.0 APTT 27.2 VBG Lactate Sodium 140 Potassium 3.6 Chloride 104 Carbon Dioxide 24.4 Anion Gap 11.6 H BUN 16 Creatinine 0.8 Est GFR (CKD-EPI 2020) 96.06 Glucose 97 Calcium 9.4 Total Bilirubin 0.33 AST 14 L ALT 19 Alkaline Phosphatase 52 Total Protein 8.0 Albumin 4.2 Beta HCG, Quant 159 H Urine Color Yellow Urine Clarity Clear Urine pH 5.5 Ur Specific [place] 1.010 Urine Protein Negative Urine Ketones Negative Urine Blood Small H Urine Nitrite Negative Urine Bilirubin Negative Urine Urobilinogen 0.2 Ur Leukocyte Esterase Negative Urine RBC 3-5 H Urine WBC Negative Ur Epithelial Cells Rare Urine Crystals Negative Urine Bacteria Negative Urine Mucus Negative Ur Culture Indicated? No Urine Glucose Negative ABO/Rh A Positive Antibody Screen NEGATIVE 03/29/24 03/30/24 03/30/24 20:45 06:12 07:05 WBC Cancelled 14.75 H RBC Cancelled 3.89 L Hgb Cancelled 12.0 Hct Cancelled 36.2 MCV Cancelled 93 MCH Cancelled 30.8 MCHC Cancelled 33.1 RDW Cancelled 12.7 Plt Count Cancelled 216 MPV Cancelled 8.9 Immature Gran % Cancelled 0.6 Neutrophils % Cancelled 83.9 Band Neutrophils % Cancelled Lymphocytes % Cancelled 5.1 Atypical Lymphs % Cancelled Monocytes % Cancelled 9.8 Eosinophils % Cancelled 0.3 Basophils % Cancelled 0.3 Metamyelocytes % Cancelled Myelocytes % Cancelled Promyelocytes % Cancelled Other Cells % Cancelled Nucleated RBC % Cancelled 0.0 Absolute Neutrophils Cancelled 12.38 H Absolute Lymphocytes Cancelled 0.75 L Absolute Monocytes Cancelled 1.45 H Absolute Eosinophils Cancelled 0.04 Absolute Basophils Cancelled 0.04 RBC Morphology Cancelled Polychromasia Cancelled Hypochromasia Cancelled Poikilocytosis Cancelled Basophilic Stippling Cancelled Anisocytosis Cancelled Microcytosis Cancelled Macrocytosis Cancelled Spherocytes Cancelled Tear Drop Cells Cancelled Ovalocytes Cancelled Stomatocytes Cancelled [place] Bodies Cancelled [place] Cells/Echinocytes Cancelled Acanthocytes (Spur) Cancelled Schistocytes Cancelled PT INR APTT VBG Lactate 1.2 Sodium Potassium Chloride Carbon Dioxide Anion Gap BUN Creatinine Est GFR (CKD-EPI 2020) Glucose Calcium Total Bilirubin AST ALT Alkaline Phosphatase Total Protein Albumin Beta HCG, Quant Urine Color Urine Clarity Urine pH Ur Specific [place] Urine Protein Urine Ketones Urine Blood Urine Nitrite Urine Bilirubin Urine Urobilinogen Ur Leukocyte Esterase Urine RBC Urine WBC Ur Epithelial Cells Urine Crystals Urine Bacteria Urine Mucus Ur Culture Indicated? Urine Glucose ABO/Rh Antibody Screen Objective Narrative Objective Narrative: Pulse decreased from around 100 to the 70s. WBC remained stable overnight. Time Spent with Patient Time Spent with Patient: 35-49 minutes Time was spent: preparing to see the patient(eg.review tests), obtaining and/or reviewing separately otained hiistory, ordering medications,tests, procedures, referring, communicating with other health childcare administrator, indepentently interpreting results and counseling the patient
--- NOTE | 2024-03-30 10:34 | W.PM.DS.N ---
Date of service: 03/30/24 Time of Service: 10:34 DS: Diagnosis Discharge Diagnosis (1) Endometritis: Status: Acute Discharge Plan Disposition Patient Disposition: Home Condition: Good Discharge Details Reason For Visit: endometritis Admit Date/Time: 03/29/24 22:42 Admit Provider: Tasneem Monroy Attending Provider: Tasneem Monroy Primary Care Provider: None,None Hospital Course Hospital Course: Admitted for observation overnight with endometritis. Received ceftriaxone x1, doxy and flagyl x2 doses, was started on methergine x3 doses. Clinical improvement 12hr s/p abx. Desired discharge. Home Meds and New Rx's Prescriptions: New doxycycline hyclate 100 mg capsule 100 mg PO BID Qty: 26 0RF doxycycline hyclate 100 mg Capsule 100 mg PO Q12H 13 Days Qty: 26 0RF methylergonovine 0.2 mg Tablet 0.2 mg PO Q4H PRN Qty: 3 0RF metronidazole 500 mg Tablet 500 mg PO Q12H 6 Days Qty: 12 0RF acetaminophen 500 mg Tablet 1,000 mg PO Q6H PRN (Reason: Abdominal Pain) Qty: 0 0RF ibuprofen 600 mg Tablet 600 mg PO Q6H PRN (Reason: Abdominal Pain) Qty: 60 0RF ondansetron 4 mg tablet,disintegrating 4 mg PO Q8H PRNQty: 14 0RF Continued levothyroxine [Synthroid] 125 mcg tablet 125 mcg PO HS sertraline 50 mg tablet 50 mg PO HS metoprolol succinate 50 mg tablet extended release 24 hr 50 mg PO DAILY sennosides-docusate sodium [Senna-S] PO PRN Discharge Instructions Additional Instructions: Take methergine 0.2mg every 4 hours for six total doses. You were given 3 doses in the hospital; the other 3 days are being sent home with you. Take them every 4 hours until they are gone. Take doxycycline every 12 hours for the next 13 days. Followup with OB- they will call you to schedule an appointment for Thursday. If you do not hear from them please call the office. Return to the emergency department for new or worsening symptoms including fever that does not respond to medication, if you feel worse, are vomiting, feel like you are going to pass out, or if you have any other concerns. Referrals: [facility] [Provider Group] Activity:: Activity as Tolerated Equipment/Supplies:: No Equipment Needed Diet:: As Tolerated Discharge Orders Discharge Orders: Discharge Order (Routine); Ordered 03/30/24 Ordered By: Tasneem Monroy DS: Summary Time Spent with Patient providing and/or coordinating discharge services: Less than 30 minutes Status at Discharge Functional status at discharge: independent ambulation Overall status at discharge: patient is back to baseline Mental Status: mental status grossly normal Speech and Movement: speech and movement normal Mood: congruent mood Affect: normal affect Quality:SDOH Health Related Social Needs: No Data to Display Exam Psych Mental Status: mental status grossly normal Speech and Movement: speech and movement normal Mood: congruent mood Affect: normal affect DS: Data Vitals/I&O Vitals and I&O: Vital Signs Temperature 98.4 F 03/30/24 07:55 Temperature Source Temporal Artery Scan 03/30/24 07:55 Pulse 77 03/30/24 07:55 Pulse Rhythm Regular 03/30/24 02:50 Pulse 99 H 03/29/24 23:20 Respiratory Rate 16 03/30/24 07:55 Respiratory Effort Normal, Non-Labored 03/30/24 02:50 Respiratory Depth Normal 03/30/24 02:50 Respiratory Pattern Normal 03/30/24 02:50 Blood Pressure 128/70 03/30/24 07:55 Blood Pressure Mean 100 03/29/24 23:00 Blood Pressure Position Supine 03/29/24 15:16 Pulse Oximetry 94 03/30/24 07:55 Oxygen Delivery Method Room Air 03/30/24 07:55 Oxygen Flow Rate 0 03/30/24 07:55 Pain Level 8 03/30/24 05:45 Intake & Output 03/29/24 03/29/24 03/30/24 11:59 23:59 11:59 Intake Total 1050 / 1050 1994 Balance 1050 / 1050 1994 Weight 200 lb 204 lb Intake: IV 1050 / 1050 1994 Other: Comment patient voided in toilet Data Completed and Pending Labs on day of discharge: Labs from last 24 hours 03/30/24 03/30/24 03/29/24 07:05 06:12 20:45 WBC 14.75 H Cancelled RBC 3.89 L Cancelled Hgb 12.0 Cancelled Hct 36.2 Cancelled MCV 93 Cancelled MCH 30.8 Cancelled MCHC 33.1 Cancelled RDW 12.7 Cancelled Plt Count 216 Cancelled MPV 8.9 Cancelled Immature Gran % 0.6 Cancelled Neutrophils % 83.9 Cancelled Band Neutrophils % Cancelled Lymphocytes % 5.1 Cancelled Atypical Lymphs % Cancelled Monocytes % 9.8 Cancelled Eosinophils % 0.3 Cancelled Basophils % 0.3 Cancelled Metamyelocytes % Cancelled Myelocytes % Cancelled Promyelocytes % Cancelled Other Cells % Cancelled Nucleated RBC % 0.0 Cancelled Absolute Neutrophils 12.38 H Cancelled Absolute Lymphocytes 0.75 L Cancelled Absolute Monocytes 1.45 H Cancelled Absolute Eosinophils 0.04 Cancelled Absolute Basophils 0.04 Cancelled RBC Morphology Cancelled Polychromasia Cancelled Hypochromasia Cancelled Poikilocytosis Cancelled Basophilic Stippling Cancelled Anisocytosis Cancelled Microcytosis Cancelled Macrocytosis Cancelled Spherocytes Cancelled Tear Drop Cells Cancelled Ovalocytes Cancelled Stomatocytes Cancelled [place] Bodies Cancelled [place]ri[place] Cells/Echinocytes Cancelled Acanthocytes (Spur) Cancelled Schistocytes Cancelled PT INR APTT VBG Lactate 1.2 Sodium Potassium Chloride Carbon Dioxide Anion Gap BUN Creatinine Est GFR (CKD-EPI 2020) Glucose Calcium Total Bilirubin AST ALT Alkaline Phosphatase Total Protein Albumin Beta HCG, Quant Urine Color Urine Clarity Urine pH Ur Specific [place] Urine Protein Urine Ketones Urine Blood Urine Nitrite Urine Bilirubin Urine Urobilinogen Ur Leukocyte Esterase Urine RBC Urine WBC Ur Epithelial Cells Urine Crystals Urine Bacteria Urine Mucus Ur Culture Indicated? Urine Glucose ABO/Rh Antibody Screen 03/29/24 03/29/24 03/29/24 16:50 16:10 15:30 WBC 14.94 H RBC 4.31 Hgb 13.3 Hct 40.3 MCV 94 MCH 30.9 MCHC 33.0 RDW 12.7 Plt Count 255 MPV 9.0 Immature Gran % 0.5 Neutrophils % 89.3 Band Neutrophils % Lymphocytes % 4.1 Atypical Lymphs % Monocytes % 5.4 Eosinophils % 0.4 Basophils % 0.3 Metamyelocytes % Myelocytes % Promyelocytes % Other Cells % Nucleated RBC % 0.0 Absolute Neutrophils 13.34 H Absolute Lymphocytes 0.61 L Absolute Monocytes 0.81 H Absolute Eosinophils 0.06 Absolute Basophils 0.04 RBC Morphology Polychromasia Hypochromasia Poikilocytosis Basophilic Stippling Anisocytosis Microcytosis Macrocytosis Spherocytes Tear Drop Cells Ovalocytes Stomatocytes [place] Bodies [place] Cells/Echinocytes Acanthocytes (Spur) Schistocytes PT 10.2 INR 1.0 APTT 27.2 VBG Lactate Sodium 140 Potassium 3.6 Chloride 104 Carbon Dioxide 24.4 Anion Gap 11.6 H BUN 16 Creatinine 0.8 Est GFR (CKD-EPI 2020) 96.06 Glucose 97 Calcium 9.4 Total Bilirubin 0.33 AST 14 L ALT 19 Alkaline Phosphatase 52 Total Protein 8.0 Albumin 4.2 Beta HCG, Quant 159 H Urine Color Yellow Urine Clarity Clear Urine pH 5.5 Ur Specific [place] 1.010 Urine Protein Negative Urine Ketones Negative Urine Blood Small H Urine Nitrite Negative Urine Bilirubin Negative Urine Urobilinogen 0.2 Ur Leukocyte Esterase Negative Urine RBC 3-5 H Urine WBC Negative Ur Epithelial Cells Rare Urine Crystals Negative Urine Bacteria Negative Urine Mucus Negative Ur Culture Indicated? No Urine Glucose Negative ABO/Rh A Positive Antibody Screen NEGATIVE 03/29/24 16:50 Blood Blood Culture - Pending 03/29/24 16:10 Blood Blood Culture - Pending Preliminary micro results at discharge 03/29/24 16:50 Blood Culture - Pending Blood 03/29/24 16:10 Blood Culture - Pending Blood PFSH All Active Problems (Updated 03/30/24 @ 10:27 by Tasneem Monroy MD) Endometritis (Acute) PVC (premature ventricular contraction) (Acute) Anxiety (Chronic) Hypothyroid (Chronic) Social History Smoking/Tobacco Use Status: Never Smoking risk assessment performed?: Yes Alcohol Intake: never Substance use type: does not use Housing: house Do you feel safe at home: Yes Do you feel safe in your relationship?: Yes History History 3 Para 3 Hx # Term Pregnancies 3 Multiple births Hx # Pregnancies Ectopic pregnancies AB induced Hx Number of Living Children 3 AB spontaneous 2 Time Spent with Patient Time Spent with Patient: <45 minutes Time was spent: preparing to see the patient(eg.review tests), obtaining and/or reviewing separately otained hiistory, ordering medications,tests, procedures, referring, communicating with other health infant childcare provider, indepentently interpreting results and counseling the patient
--- NOTE | 2024-03-30 10:55 | PDOC.CMDIS ---
Date of service: 03/30/24 Time of Service: 10:55 LACE Index Scoring Tool Questions: Length of Stay (in days): 1 Was the patient admitted via the E.D.?: Yes E.D. Visits: 1 Answers: Total Score: 5 Risk of Readmission: Low Risk Care Management Discharge Plan Reason for Hospitalization: Endometriosis Discharge Plan: Discharge home via private vehicle with family. Follow up with community providers and discharge plan of care as directed. Follow up with [facility] on 04/01/24, as scheduled. No new services are scheduled prior to discharge. Patient/Family Education Needs: Review discharge instructions and plan to follow up. Discuss ask me three. SDOH Health Related Social Needs: No Data to Display
== END 2024-03-30 11:40 | disposition home or self-care (01) ==
LOC: ER 23:18 → MS 03-30 00:15
PROVIDERS: Admitting Provider Obstetrics & Gynecology; Emergency Provider Student in an Organized Health Care Education/Training Program; Visit Provider Obstetrics & Gynecology
DX: N71.9 Inflammatory disease of uterus, unspecified (principal); R00.0 Tachycardia, unspecified; R10.2 Pelvic and perineal pain; Z79.899 Other long term (current) drug therapy
CPT/HCPCS: 36415; 80053; 86850; 86900; 86901; 87040; 96361; 96365; 96375; 99285; 76801; 81003; 81015; 83605; 84702; 85025; 85610; 85730; 87480; 87510; 87660; G0378; J0696; J1885

== ENCOUNTER 2024-04-01 12:26 | Outpatient (CLI) | payer BC, SELFPAY ==
[2024-04-01 12:48] LABS: HCG Quant, Pregnancy 54 mIU/mL (1-3)
== END 2024-04-01 12:27 | disposition home or self-care (01) ==
LOC: LBO 12:31
PROVIDERS: Visit Provider Obstetrics & Gynecology
DX: Z87.59 Personal history of other complications of pregnancy, childbirth and the puerperium (principal)
CPT/HCPCS: 36415; 84702